=== PATIENT | female | born 1975 | race African-American/Black ===

== ENCOUNTER 2018-12-31 23:14 | Emergency (ER) | payer SELFPAY ==
[2018-12-31 23:39] LABS: Bilirubin Negative (Negative); Blood, Urine Negative (Negative); Clarity CLEAR (Clear); Glucose, Urine (Dipstick) Negative (Negative); Leukocyte Small (Negative); Nitrite Negative (Negative); Protein, Urine (Dipstick) Negative (Neg-Trace); Specific Gravity, Urine 1.027 (1.002-1.036)
[2018-12-31 23:44] LABS: Bacteria/HPF None Seen HPF (None Seen); Hyaline Casts/LPF 0-3 HYALINE CAST LPF (0-3 Hyaline); Pathc Cast-AUWi Flag 0.43 (0-2.49); RBC/HPF 0-3 HPF (0-3); Squamous Epithelial 0-3 HPF (0-3); WBC/HPF 21-50 HPF (0-3)
[2018-12-31 23:47] LABS: #Basophils 0.1 thou/uL (0.0-0.2); #Eosinphils 0.1 thou/uL (0.0-0.7); #Lymphocytes 2.4 thou/uL (1.20-3.40); #Monocytes 0.3 thou/uL (0.11-0.59); #Neutrophils 4.9 thou/uL (1.40-6.50); %Basophils 0.7 % (0.0-1.0); %Eosinophils 1.2 % (0.0-10.0); %Lymphocytes 31.4 % (21.0-51.0); %Monocytes 4.4 % (0.0-10.0); %Neutrophils 62.4 % (42.0-75.0); Hemoglobin 12.7 g/dL (12.0-16.0); Mean Corpuscular HGB CONC 32.4 g/dL (32.0-36.0); Mean Corpuscular Hemoglobin 28.8 pg (27.0-31.0); Mean Corpuscular Volume 88.7 fL (78.0-98.0); Mean Platelet Volume 7.6 fL (7.4-10.4); Platelet Count 311 thou/uL (130-400); White Blood Cell (WBC) Count 7.8 thou/uL (4.8-10.8)
[2019-01-01 00:18] LABS: ALT (SGPT) 14 U/L (8-55); AST (SGOT) 17 U/L (5-34); Albumin 3.2 g/dL (3.5-5.0); Alkaline Phosphatase 47 U/L (40-150); Anion Gap 12 mmol/L (10-20); BUN (Urea Nitrogen) 12 mg/dL (7.0-18.7); Bilirubin, Total 0.2 mg/dL (0.2-1.2); Calc. Creatinine Clearance 0 mL/min (70-130); Calcium 8.6 mg/dL (7.8-10.44); Carbon Dioxide 25 mmol/L (22-29); Chloride 108 mmol/L (98-107); Estimated GFR-MDRD 78; Glucose 93 mg/dL (70-105); Potassium 3.9 mmol/L (3.5-5.1); Protein, Total 6.2 g/dL (6.0-8.3); Sodium 141 mmol/L (136-145)
[2019-01-01] MEDS ORDERED: Ketorolac Tromethamine 30 MG/ML VIAL ONE (00:31)
[2019-01-01 00:35] LABS: Pregnancy Test - Urine (BHCG) Negative (Negative); Pregu Control Background? CLEAR/WHITE (CLR/WHITE); Pregu Control Bar Appear? YES (CONTROL BAR); Specific Gravity 1.027 (1.002-1.036)
== END 2019-01-01 00:58 | disposition home or self-care (01) ==
LOC: ERS 23:14
DX: N30.01 Acute cystitis with hematuria (principal); I10 Essential (primary) hypertension
CPT/HCPCS: 36415; 80053; 81003; 81015; 81025; 85025; 96372; J1885

== ENCOUNTER 2019-01-02 17:07 | Emergency (ER) | payer SELFPAY ==
[~2019-01-02 17:07] MED LIST: Iopamidol 370 76% 100 ML VIAL ONE
[2019-01-02 19:13] LABS: #Basophils 0.1 thou/uL (0.0-0.2); #Eosinphils 0.1 thou/uL (0.0-0.7); #Lymphocytes 2.5 thou/uL (1.20-3.40); #Monocytes 0.4 thou/uL (0.11-0.59); #Neutrophils 5.9 thou/uL (1.40-6.50); %Basophils 0.8 % (0.0-1.0); %Eosinophils 0.8 % (0.0-10.0); %Monocytes 4.6 % (0.0-10.0); %Neutrophils 65.8 % (42.0-75.0); Hemoglobin 12.8 g/dL (12.0-16.0); Mean Corpuscular HGB CONC 32.7 g/dL (32.0-36.0); Mean Corpuscular Hemoglobin 29.1 pg (27.0-31.0); Mean Platelet Volume 7.7 fL (7.4-10.4); Platelet Count 272 thou/uL (130-400); RBC Distribution Width 12.7 % (11.5-14.5); Red Blood Cell (RBC) Count 4.38 mill/uL (4.20-5.40)
[2019-01-02 19:15] LABS: Bilirubin Negative (Negative); Blood, Urine Negative (Negative); Clarity CLEAR (Clear); Glucose, Urine (Dipstick) Negative (Negative); Leukocyte Small (Negative); Nitrite Negative (Negative); Protein, Urine (Dipstick) Negative (Neg-Trace); Specific Gravity, Urine 1.022 (1.002-1.036)
[2019-01-02 19:16] LABS: Pregnancy Test - Urine (BHCG) Negative (Negative); Pregu Control Background? CLEAR/WHITE (CLR/WHITE); Pregu Control Bar Appear? YES (CONTROL BAR); Specific Gravity 1.022 (1.002-1.036)
[2019-01-02 19:17] LABS: Bacteria/HPF None Seen HPF (None Seen); Hyaline Casts/LPF 0-3 HYALINE CAST LPF (0-3 Hyaline); RBC/HPF 0-3 HPF (0-3); Squamous Epithelial 0-3 HPF (0-3)
[2019-01-02 19:36] LABS: AST (SGOT) 22 U/L (5-34); Bilirubin, Total Less than 0.2 mg/dL (0.2-1.2); Calcium 8.1 mg/dL (7.8-10.44); Chloride 109 mmol/L (98-107); Potassium 4.1 mmol/L (3.5-5.1); Sodium 140 mmol/L (136-145)
[2019-01-02] MEDS ORDERED: Ondansetron PF 4 MG/2 ML Vial ONE (19:37)
[2019-01-02] MEDS ORDERED: Morphine 4 MG/ML VIAL ONE (19:37)
--- NOTE | 2019-01-02 19:37 | CT ---
CT ABDOMEN AND PELVIS WITH CONTRAST: 01/02/19 HISTORY: Right lower quadrant tenderness. COMPARISON: CT stone protocol 05/03/14. FINDINGS: The lung bases are clear. No pericardial effusion. Gallbladder, liver, spleen, pancreas are all unrem arkable. No hydroureteronephrosis is appreciated. There is bilateral symmetric renal enhancement. There is dilatation of the left sided gonadal veins. Small layering free fluid in the pelvis. There is suture around a few loops of mid small bowel. The appendix is visualized and is normal. No dilated loops of large or small bowel. No evidence for b owel obstruction. A right adnexal dominant follicle is appreciated. No retroperitoneal adenopathy. Aortoiliac contour is normal. There is no acute osseous abnormality. IMPRESSION: 1. No acute inflammatory process in the abdomen or pelvis. 2. Normal appendix. 3. Free fluid in the pelvis likely physiologic. 4. Chronic osteitis pubis. POS: [facility]
[2019-01-02 19:45] LABS: ALT (SGPT) 20 U/L (8-55); Albumin 3.1 g/dL (3.5-5.0); Alkaline Phosphatase 51 U/L (40-150); Anion Gap 7 mmol/L (10-20); BUN (Urea Nitrogen) 11 mg/dL (7.0-18.7); Calc. Creatinine Clearance 0 mL/min (70-130); Carbon Dioxide 26 mmol/L (22-29); Estimated GFR-MDRD 84; Globulin 2.5 g/dL (2.4-3.5); Glucose 96 mg/dL (70-105); Protein, Total 5.6 g/dL (6.0-8.3)
[2019-01-02] MEDS ORDERED: cefTRIAXone\\ROCEPHIN 250 MG VIAL ONE (20:54)
--- NOTE | 2019-01-02 20:55 | ULT ---
ULTRASOUND PELVIC TRANSVAGINAL 01/02/19 HISTORY: Right lower quadrant pain. COMPARISON: Ultrasound 10/24/14. FINDINGS: Real time dumont scale, color doppler and spectral analysis of the pelvis performed transvaginal lowell culp. The uterus measures 11.9 x 6.6 x 6 cm. Endometrial thickness is 1.6 cm. No fluid within the endom etrial canal. Both ovaries are normal. There is a hemorrhagic cyst right ovary. Trace free fluid. IMPRESSION: Right ovarian hemorrhagic cyst with trace free fluid in the pelvis likely physiologic. Adequate flow to both ovaries. POS: [facility]
[2019-01-02] MEDS ORDERED: Lidocaine 1% PF 5 ML VIAL ONE ×2 (21:04→21:05)
[2019-01-02] MEDS ORDERED: Azithromycin 250 MG TAB ONE (21:04)
== END 2019-01-02 21:30 | disposition home or self-care (01) ==
LOC: ERS 17:07
DX: N73.9 Female pelvic inflammatory disease, unspecified (principal); I10 Essential (primary) hypertension
CPT/HCPCS: 74177; 76856; 80053; 81003; 81015; 81025; 85025; 96361; 96372; 96374; 96375; J0696; J2001; J2270; J2405; Q9967

== ENCOUNTER 2019-05-19 00:41 | Emergency (ER) | payer SELFPAY ==
[2019-05-19 01:14] LABS: #Eosinphils 0.1 thou/uL (0.0-0.7); #Lymphocytes 1.4 thou/uL (1.20-3.40); #Monocytes 0.3 thou/uL (0.11-0.59); #Neutrophils 3.5 thou/uL (1.40-6.50); %Basophils 0.7 % (0.0-1.0); %Eosinophils 1.4 % (0.0-10.0); %Lymphocytes 26.1 % (21.0-51.0); %Monocytes 5.2 % (0.0-10.0); %Neutrophils 66.7 % (42.0-75.0); Hemoglobin 11.6 g/dL (12.0-16.0); Mean Corpuscular HGB CONC 33.1 g/dL (32.0-36.0); Mean Corpuscular Hemoglobin 28.4 pg (27.0-31.0); Mean Corpuscular Volume 85.9 fL (78.0-98.0); Mean Platelet Volume 7.2 fL (7.4-10.4); Platelet Count 324 thou/uL (130-400); Red Blood Cell (RBC) Count 4.07 mill/uL (4.20-5.40); White Blood Cell (WBC) Count 5.2 thou/uL (4.8-10.8)
[2019-05-19] MEDS ORDERED: Sulfameth/Trimethoprim DS 800-160mg TAB ONE (01:23)
[2019-05-19] MEDS ORDERED: HYDROcodone/Acetaminophen 5/325 mg Tablet ONE (01:23)
[2019-05-19 01:35] LABS: ALT (SGPT) 27 U/L (8-55); AST (SGOT) 27 U/L (5-34); Albumin 3.3 g/dL (3.5-5.0); Alkaline Phosphatase 69 U/L (40-150); Anion Gap 11 mmol/L (10-20); BUN (Urea Nitrogen) 8 mg/dL (7.0-18.7); Bilirubin, Total 0.3 mg/dL (0.2-1.2); Calc. Creatinine Clearance 0 mL/min (70-130); Calcium 8.8 mg/dL (7.8-10.44); Carbon Dioxide 25 mmol/L (22-29); Chloride 106 mmol/L (98-107); Estimated GFR-MDRD 90; Globulin 3.3 g/dL (2.4-3.5); Glucose 100 mg/dL (70-105); Potassium 3.5 mmol/L (3.5-5.1); Protein, Total 6.6 g/dL (6.0-8.3); Sodium 138 mmol/L (136-145)
== END 2019-05-19 01:40 | disposition home or self-care (01) ==
LOC: ERS 00:41
DX: L02.211 Cutaneous abscess of abdominal wall (principal); L02.416 Cutaneous abscess of left lower limb; L03.116 Cellulitis of left lower limb; I10 Essential (primary) hypertension
CPT/HCPCS: 36415; 80053; 85025; 99283

== ENCOUNTER 2019-06-08 15:36 | Inpatient (IN) | payer SELFPAY ==
[2019-06-08] MEDS ORDERED: Acetaminophen 500 MG TAB ONE (15:49)
[2019-06-08 16:08] LABS: #Lymphocytes 1.2 thou/uL (1.20-3.40); #Monocytes 0.5 thou/uL (0.11-0.59); #Neutrophils 3.3 thou/uL (1.40-6.50); %Basophils 0.7 % (0.0-1.0); %Eosinophils 0.8 % (0.0-10.0); %Monocytes 9.3 % (0.0-10.0); %Neutrophils 65.3 % (42.0-75.0); Hemoglobin 11.3 g/dL (12.0-16.0); Mean Corpuscular HGB CONC 32.5 g/dL (32.0-36.0); Mean Corpuscular Hemoglobin 27.2 pg (27.0-31.0); Mean Corpuscular Volume 83.7 fL (78.0-98.0); Mean Platelet Volume 7.1 fL (7.4-10.4); Platelet Count 422 thou/uL (130-400); RBC Distribution Width 11.3 % (11.5-14.5); Red Blood Cell (RBC) Count 4.15 mill/uL (4.20-5.40); White Blood Cell (WBC) Count 5.1 thou/uL (4.8-10.8)
[2019-06-08 16:28] LABS: ALT (SGPT) 18 U/L (8-55); AST (SGOT) 20 U/L (5-34); Albumin 3.6 g/dL (3.5-5.0); Alkaline Phosphatase 89 U/L (40-150); Anion Gap 12 mmol/L (10-20); BUN (Urea Nitrogen) 15 mg/dL (7.0-18.7); Bilirubin, Total 0.4 mg/dL (0.2-1.2); Calc. Creatinine Clearance 0 mL/min (70-130); Calcium 9.8 mg/dL (7.8-10.44); Carbon Dioxide 26 mmol/L (22-29); Chloride 101 mmol/L (98-107); Estimated GFR-MDRD 78; Globulin 4.5 g/dL (2.4-3.5); Glucose 99 mg/dL (70-105); Potassium 4.5 mmol/L (3.5-5.1); Protein, Total 8.1 g/dL (6.0-8.3); Sodium 134 mmol/L (136-145)
[2019-06-08 16:57] LABS: Bacteria/HPF None Seen HPF (None Seen); Bilirubin Negative (Negative); Blood, Urine Trace (Negative); Clarity Clear (Clear); Glucose, Urine (Dipstick) Normal (Negative); Leukocyte 75 Leu/uL (Negative); Nitrite Negative (Negative); Protein, Urine (Dipstick) 10 mg/dL (Neg-Trace); Urobilinogen Normal mg/dL (Less than 2)
--- NOTE | 2019-06-08 17:16 | RAD ---
PORTABLE CHEST ONE VIEW: 06/08/2019 3:59 p.m. HISTORY: Cough. COMPARISON: 11/03/2015 FINDINGS: The heart size is normal. The lungs are well expanded without focal areas of consolidation, pneumoth oraces, or pleural effusions. IMPRESSION: No radiographic evidence of acute cardiopulmonary process. POS: OFF
[2019-06-08] MEDS ORDERED: Piperacillin/Tazobactam 4.5 GM VIAL ONE (17:26)
[2019-06-08] MEDS ORDERED: HYDROcodone/Acetaminophen 5/325 mg Tablet PO PRN ×2 (19:32)
[2019-06-08] MEDS ORDERED: Acetaminophen 325 MG TAB PO PRN (19:32)
[2019-06-08] MEDS ORDERED: Ondansetron PF 4 MG/2 ML Vial IVP PRN ×2 (19:32→21:58)
[2019-06-08] MEDS ORDERED: Ondansetron ODT 4 MG TAB SL PRN (19:32)
[2019-06-08 19:42] VITALS: BMI 32.3
[2019-06-08] MEDS ORDERED: Ibuprofen 200 MG TAB PO PRN (21:58)
[2019-06-08] MEDS ORDERED: Ondansetron ODT 4 MG TAB PO PRN (21:58)
[2019-06-08] MEDS ORDERED: hydrALAZINE 20 MG/ML VIAL SLOW IVP PRN (21:58)
[2019-06-08] MEDS: Sodium Chloride 0.9% 1,000 ML IV SCH ×2 (22:08→22:13)
[2019-06-08] MEDS: cefTRIAXone\\ROCEPHIN 2 GM in Sodium Chloride 0.9% 100 ML IVPB SCH (22:14)
[2019-06-08] MEDS ORDERED: Piperacillin/Tazobactam 4.5 GM in Sodium Chloride 0.9% 100 ML IVPB SCH (23:59)
--- NOTE | 2019-06-09 02:29 | HP ---
PRIMARY CARE PROVIDER: [facility] [place], [place]. CHIEF COMPLAINT: Leg pain and fever. HISTORY OF PRESENT ILLNESS: This is a 43-year-old female, who presents to [facility] Emergency Department complaining of left lower extremity pain in addition to fever and general malaise. The patient states she was diagnosed with an abscess of the left thigh approximately 3 weeks prior to this evaluation, undergoing incision and drainage with wound packing over the last 2 weeks. The patient was placed on Bactrim DS and tramadol, completing a course of therapy. The patient also admitted a small skin abscess on the left lower abdomen, which has since improved. The patient complained of fever in the last 24 hours with intermittent chills over the last seven days. The patient states the wound on her left thigh has improved with the packing completely removed and the wound sealed up. The patient denies any new exposure history, family members with similar symptoms or recent travel. The patient denies any increased shortness of breath, cough or congestion. The patient had some diarrhea within the last week, which has since resolved. In the emergency room, the patient underwent general evaluation with vital signs showing a temperature of 101.3 degrees Fahrenheit and tachycardia with heart rates over the 110s. The patient received IV vancomycin and Zosyn due to SIRS criteria being met, as well as intravenous normal saline and acetaminophen. PAST MEDICAL HISTORY: 1. Hypertension, treated. 2. Ectopic . PAST SURGICAL HISTORY: 1. Status post section. 2. Status post hernia repair. 3. Status post bilateral tubal ligation. 4. Status post incision and drainage of left thigh abscess. CURRENT MEDICATIONS: 1. Bactrim DS 800 mg 1 tablet p.o. b.i.d., completed therapy. 2. Tramadol 50 mg p.o. q.4 to 6 hours p.r.n. pain. 3. Antihypertensive, unknown type per patient report. ALLERGIES: NO KNOWN DRUG ALLERGIES. FAMILY HISTORY: No inheritable diseases per patient report. SOCIAL HISTORY: The patient resides in [place], [place]. Works at a local hotel. Occasional alcohol use. No tobacco or illicit drug use. REVIEW OF SYSTEMS: CONSTITUTIONAL: Negative for weight loss or gain, ability to conduct usual activities. SKIN: Negative for rash, itching. EYES: Negative for double vision, pain. ENT/MOUTH: Negative for nose bleeding, neck stiffness, pain, tenderness. CARDIOVASCULAR: Negative for palpitations, dyspnea on exertion, orthopnea. RESPIRATORY: Negative for shortness of breath, wheezing, cough, hemoptysis, fever or night sweats. GASTROINTESTINAL: Negative for poor appetite, abdominal pain, heartburn, nausea, vomiting, constipation, or diarrhea. GENITOURINARY: Negative for urgency, frequency, dysuria, nocturia. MUSCULOSKELETAL: Negative for pain, swelling. NEUROLOGIC/PSYCHIATRIC: Negative for anxiety, depression. ALLERGY/IMMUNOLOGIC: Negative for skin rash, bleeding tendency. Otherwise negative except as stated per HPI. PHYSICAL EXAMINATION: VITAL SIGNS: On admission, blood pressure 111/73, pulse 130, respiratory rate 17, temperature 101.3 degrees Fahrenheit, O2 saturation 99% on room air. GENERAL APPEARANCE: This is a 43-year-old female, alert and oriented x3, pleasant, conversant, in no acute distress. HEENT: Pupils are equal, round, reactive to light and accommodation. Extraocular muscles are intact. No scleral icterus. No conjunctival injection. Nares patent. OP is clear. Teeth in fair repair. NECK: Supple. No cervical adenopathy. No thyromegaly. No carotid bruits. No JVD appreciated. Cervical spine with full active and passive range of motion. No meningeal signs noted. CHEST: Lungs are clear to auscultation bilaterally. CARDIOVASCULAR: S1-S2 without noted murmur, rub, or gallop. ABDOMEN: Rounded, soft, nontender, and nondistended. Bowel sounds are positive in all 4 quadrants. There is no hepatosplenomegaly. No abdominal bruits. No rebound or guarding appreciated. EXTREMITIES: Warm and dry with fair turgor. No clubbing, cyanosis, or asymmetric edema appreciated. Pulses palpable distally at the dorsalis pedis, posterior tibial, and popliteal arteries bilaterally. Capillary refill less than 2 seconds. SKIN: Left thigh with small ulceration in the medial anterior aspect of the mid thigh. Denuded area approximately 1 cm in diameter. No expressible discharge. No induration or fluctuance. NEUROLOGIC: Cranial nerves 2 through 12 are grossly intact. No focal or lateralizing signs appreciated. PERTINENT LAB AND X-RAY FINDINGS: Basic metabolic profile within normal limits. CBC showed a white blood cell count of 5.1, hemoglobin 11, hematocrit 35, platelet count 422 with 65% neutrophils. Urinalysis showed trace blood and positive leukocyte esterase. 4-6 wbc's and rbc's per high-power field. Portable chest x-ray dated 06/08/2019, showed no acute cardiopulmonary process. EKG dated 06/08/2019 by my interpretation shows sinus tachycardia with heart rates in the 110s. Normal R-wave progression noted in the precordial leads. Normal axis. No acute ST-T wave changes appreciated. ASSESSMENT AND PLAN: 1. Systemic inflammatory response syndrome. The patient will be admitted to the medical floor. We will continue empiric antibiotic coverage with vancomycin 1.25 g IV q.12 hours with additional Rocephin 2 g IV q.24 hours. The patient with elevated heart rate and temperature at the time of admission. Left lower extremity skin wound, likely source of infectious process. Blood cultures x2 pending. Continue antibiotic coverage and monitor clinical response. Continue intravenous normal saline 100 mL/h. 2. Left lower extremity abscess, status post incision and drainage. Appears to be healing clinically. We will continue management as outlined in #1. Local wound care. 3. Hypertension. We will confirm home antihypertensive regimen and resume once blood pressure regimen is noted. Hydralazine p.r.n. 4. Normocytic anemia. Chronic appearing. Repeat CBC in the a.m. No specific evidence of acute blood loss. 5. Prophylaxis. SCDs while in bed. Pepcid 20 mg p.o. b.i.d. 6. Code status is full. Surrogate medical decision maker is Tyson Conde. Job ID: [id number]
[2019-06-09] MEDS: Vancomycin HCl 1.25 GM in Sodium Chloride 0.9% 250 ML 250 ML IVPB SCH ×2 (05:07→17:27)
[2019-06-09 05:09] LABS: Eosinophils 2 % (0-10); Hemoglobin 10.2 g/dL (12.0-16.0); Hypochromia SLIGHT = 6-15 cells (100X) (0-5/hpf); Lymphocytes 36 % (21-51); MDiff Complete? YES; Mean Corpuscular HGB CONC 31.8 g/dL (32.0-36.0); Mean Corpuscular Hemoglobin 26.8 pg (27.0-31.0); Mean Corpuscular Volume 84.4 fL (78.0-98.0); Mean Platelet Volume 7.1 fL (7.4-10.4); Monocytes 12 % (0-10); Neutrophil 50 % (42-75); Platelet Count 362 thou/uL (130-400); Platelet Morphology Comment Appears Adequate; RBC Distribution Width 11.3 % (11.5-14.5); White Blood Cell (WBC) Count 3.9 thou/uL (4.8-10.8)
[2019-06-09 05:18] LABS: Anion Gap 11 mmol/L (10-20); BUN (Urea Nitrogen) 15 mg/dL (7.0-18.7); Calc. Creatinine Clearance 139 mL/min (70-130); Carbon Dioxide 23 mmol/L (22-29); Chloride 107 mmol/L (98-107); Estimated GFR-MDRD Greater than 90; Glucose 109 mg/dL (70-105); Potassium 4.1 mmol/L (3.5-5.1); Sodium 137 mmol/L (136-145)
[2019-06-09] MEDS ORDERED: Loratadine 10 MG TAB PO PRN (07:30)
[2019-06-09] MEDS ORDERED: Sodium Chloride 0.65% Nasal 44 ML BOT EA NARE PRN (07:30)
[2019-06-09] MEDS ORDERED: Zolpidem Tartrate 5 MG TAB PO PRN (07:30)
[2019-06-09] MEDS ORDERED: Loperamide HCl 2 MG CAP PO PRN (07:30)
[2019-06-09] MEDS ORDERED: Artificial Tears 18 DROP/0.9 ML EA EYE PRN (07:30)
[2019-06-09] MEDS ORDERED: Calcium Carbonate 500 MG ChewTAB PO PRN (07:30)
[2019-06-09] MEDS ORDERED: Senokot S 8.6-50 MG TAB PO PRN (07:30)
[2019-06-09] MEDS ORDERED: Diabetic Tussin 200 MG/10 ML UDCUP PO PRN (07:30)
[2019-06-09] MEDS ORDERED: Cepastat Lozenges 1 LOZ PO PRN (07:30)
[2019-06-09] MEDS ORDERED: Bisacodyl 10 MG SUPP PR PRN (07:30)
[2019-06-09] MEDS: Famotidine 20 MG TAB PO SCH ×2 (08:31→21:26)
[2019-06-09] MEDS: Sodium Chloride 0.9% 1,000 ML IV SCH ×2 (08:32→18:31)
[2019-06-09] MEDS: Enoxaparin Sodium 40 MG/0.4 ML SYRINGE SC SCH (08:32)
[2019-06-09] MEDS ORDERED: Vancomycin HCl 1.25 GM in Premix Bag 1 BAG IVPB SCH (09:00)
--- NOTE | 2019-06-09 11:00 | PDOC.PN ---
- Subjective Encounter Start Date: 06/09/19 Encounter Start Time: 09:00 -: old records requested/rev Patient seen and examined. No new complaints. No overnight events, left leg pain improving - Objective Resuscitation Status - Order Detail: 06/08/19 21:54 Resuscitation Status Routine Resuscitation Status: FULL: Full Resuscitation MAR Reviewed: Yes Vital Signs & Weight: Vital Signs (12 hours) Temp Pulse Resp BP BP Pulse Ox 06/09/19 08:00 98.4 F 85 18 117/80 100 06/09/19 04:05 99.8 F H 92 20 94/61 98 06/09/19 00:00 98.6 F 92 20 101/62 99 Weight Weight 206 lb 11.2 oz I&O: 06/08/19 06/09/19 06/10/19 06:59 06:59 06:59 Intake Total 1400 Balance 1400 Result Diagrams: 06/09/19 04:24 06/09/19 04:24 Phys Exam - Physical Examination Constitutional: NAD HEENT: PERRLA, moist MMs, sclera anicteric Neck: no JVD, supple Respiratory: no wheezing, no rales, no rhonchi Cardiovascular: RRR, no significant murmur, no rub Gastrointestinal: soft, non-tender, no distention, positive bowel sounds Musculoskeletal: no edema, pulses present left leg cellulitis Neurological: non-focal, normal sensation, moves all 4 limbs Lymphatic: no nodes Psychiatric: normal affect, A&O x 3 Skin: no rash, normal turgor Dx/Plan (1) Cellulitis of left lower extremity Code(s): L03.116 - CELLULITIS OF LEFT LOWER LIMB Status: Acute (2) Sepsis Code(s): A41.9 - SEPSIS, UNSPECIFIED ORGANISM Status: Acute (3) Anemia, normocytic normochromic Code(s): D64.9 - ANEMIA, UNSPECIFIED Status: Chronic (4) Hypertension Code(s): I10 - ESSENTIAL (PRIMARY) HYPERTENSION Status: Chronic (5) Obesity (BMI 30.0-34.9) Code(s): E66.9 - OBESITY, UNSPECIFIED Status: Chronic - Plan cont current plan of care, continue antibiotics * continue rocephin , vancomycin * continue IVF * pain control * ambulate as tolerated * medication reviewed as below * symptomatic treatment. Review of Systems - Review of Systems ENT: negative: Ear Pain, Ear Discharge, Nose Pain, Nose Discharge, Nose Congestion, Mouth Pain, Mouth Swelling, Throat Pain, Throat Swelling, Other Respiratory: negative: Cough, Dry, Shortness of Breath, Hemoptysis, SOB with Excertion, Pleuritic Pain, Sputum, Wheezing Cardiovascular: negative: chest pain, palpitations, orthopnea, paroxysmal nocturnal dyspnea, edema, light headedness, other Gastrointestinal: negative: Nausea, Vomiting, Abdominal Pain, Diarrhea, Constipation, Melena, Hematochezia, Other Genitourinary: negative: Dysuria, Frequency, Incontinence, Hematuria, Retention , Other Musculoskeletal: Leg Pain. negative: Neck Pain, Shoulder Pain, Arm Pain, Back Pain, Hand Pain, Foot Pain, Other Skin: negative: Rash, Lesions, Evan, Bruising, Other - Medications/Allergies Allergies/Adverse Reactions: Allergies Allergy/AdvReac Type Severity Reaction Status Date / Time No Known Allergies Allergy Unverified 06/08/19 19:31 Medications: Current Medications Acetaminophen (Tylenol) 1,000 mg PO Q6H PRN PRN Reason: Mild Pain (1-3) Artificial Tears (Tears Naturale) 2 drop EA EYE PRN PRN PRN Reason: Dry Eyes Bisacodyl (Dulcolax) 10 mg [place] DAILYPRN PRN PRN Reason: Constipation Calcium Carbonate (Tums) 1,000 mg PO Q4H PRN PRN Reason: Heartburn or Indigestion Enoxaparin Sodium (Lovenox) 40 mg SC 0900 [facility] Last Admin: 06/09/19 08:32 Dose: 40 mg Famotidine (Pepcid) 20 mg PO BID [facility] Last Admin: 06/09/19 08:31 Dose: 20 mg Guaifenesin (Robitussin Sf) 200 mg PO Q4H PRN PRN Reason: Cough Hydralazine HCl (Apresoline) 10 mg SLOW IVP Q4H PRN PRN Reason: SBP > 180 and HR < 70 Ceftriaxone Sodium 2 gm/ (Sodium Chloride) 100 mls @ 200 mls/hr IVPB Q24HR [facility] Last Admin: 06/08/19 22:14 Dose: 100 mls Sodium Chloride (Normal Saline 0.9%) 1,000 mls @ 100 mls/hr IV .Q10H [facility] Last Admin: 06/09/19 08:32 Dose: 1,000 mls Vancomycin HCl 1.25 gm/ Sodium (Chloride) 250 mls @ 166.667 mls/hr IVPB 0600, 1800 VINNY Last Admin: 06/09/19 05:07 Dose: 250 mls Ibuprofen (Motrin) 400 mg PO Q4H PRN PRN Reason: Fever > 101 Loperamide HCl (Imodium) 2 mg PO PRN PRN PRN Reason: Diarrhea/Loose Stools Loratadine (Claritin) 10 mg PO DAILYPRN PRN PRN Reason: Sinus Symptoms Ondansetron HCl (Zofran Odt) 4 mg PO Q6H PRN PRN Reason: Nausea/Vomiting Ondansetron HCl (Zofran) 4 mg IVP Q6H PRN PRN Reason: Nausea/Vomiting Senna/Docusate Sodium (Senokot S) 2 tab PO BID PRN PRN Reason: Constipation Sodium Chloride ([place] Nasal [place] 0.65%) 0 ml EA NARE QIDPRN PRN PRN Reason: Nasal Congestion Throat Lozenges (Cepastat Lozenges) 1 rachel PO Q2H PRN PRN Reason: Sore Throat Zolpidem Tartrate (Ambien) 5 mg PO HSPRN PRN PRN Reason: Insomnia
[2019-06-09] MEDS: Acetaminophen 500 MG TAB PO PRN (17:26)
[2019-06-09] MEDS: cefTRIAXone\\ROCEPHIN 2 GM in Sodium Chloride 0.9% 100 ML IVPB SCH (21:26)
[2019-06-10] MEDS: Sodium Chloride 0.9% 1,000 ML IV SCH ×3 (04:40→23:02)
[2019-06-10] MEDS: Vancomycin HCl 1.25 GM in Sodium Chloride 0.9% 250 ML 250 ML IVPB SCH ×2 (05:44→19:34)
[2019-06-10 06:06] LABS: #Eosinphils 0.1 thou/uL (0.0-0.7); #Lymphocytes 1.1 thou/uL (1.20-3.40); #Monocytes 0.4 thou/uL (0.11-0.59); #Neutrophils 1.8 thou/uL (1.40-6.50); %Basophils 0.3 % (0.0-1.0); %Eosinophils 2.3 % (0.0-10.0); %Lymphocytes 32.7 % (21.0-51.0); %Monocytes 11.9 % (0.0-10.0); %Neutrophils 52.8 % (42.0-75.0); Hemoglobin 9.7 g/dL (12.0-16.0); Mean Corpuscular HGB CONC 31.7 g/dL (32.0-36.0); Mean Corpuscular Hemoglobin 26.9 pg (27.0-31.0); Mean Corpuscular Volume 84.7 fL (78.0-98.0); Mean Platelet Volume 7.2 fL (7.4-10.4); Platelet Count 342 thou/uL (130-400); RBC Distribution Width 11.2 % (11.5-14.5); Red Blood Cell (RBC) Count 3.61 mill/uL (4.20-5.40); White Blood Cell (WBC) Count 3.4 thou/uL (4.8-10.8)
[2019-06-10 06:21] LABS: Anion Gap 11 mmol/L (10-20); BUN (Urea Nitrogen) 9 mg/dL (7.0-18.7); CRP (Inflammatory) 5.37 mg/dL (= or < 0.5); Calc. Creatinine Clearance 155 mL/min (70-130); Calcium 8.7 mg/dL (7.8-10.44); Carbon Dioxide 23 mmol/L (22-29); Chloride 107 mmol/L (98-107); Estimated GFR-MDRD Greater than 90; Glucose 97 mg/dL (70-105); Potassium 3.8 mmol/L (3.5-5.1); Sodium 137 mmol/L (136-145)
[2019-06-10] MEDS: Enoxaparin Sodium 40 MG/0.4 ML SYRINGE SC SCH (08:24)
[2019-06-10] MEDS: Famotidine 20 MG TAB PO SCH ×2 (08:24→19:55)
--- NOTE | 2019-06-10 12:07 | PDOC.PN ---
- Subjective Encounter Start Date: 06/10/19 Encounter Start Time: 08:20 Patient seen and examined. No new complaints. No overnight events - Objective Resuscitation Status - Order Detail: 06/08/19 21:54 Resuscitation Status Routine Resuscitation Status: FULL: Full Resuscitation MAR Reviewed: Yes Vital Signs & Weight: Vital Signs (12 hours) Temp Pulse Resp BP BP Pulse Ox 06/10/19 08:00 98.7 F 79 16 104/69 98 06/10/19 04:00 98.6 F 84 20 106/75 100 Weight Admit Weight 206 lb 11.2 oz Weight 206 lb 11.2 oz I&O: 06/09/19 06/10/19 06/11/19 06:59 06:59 06:59 Intake Total 1400 2580 Balance 1400 2580 Result Diagrams: 06/10/19 05:13 06/10/19 05:13 Phys Exam - Physical Examination Constitutional: NAD HEENT: PERRLA, moist MMs, sclera anicteric Neck: no JVD, supple Respiratory: no wheezing, no rales, no rhonchi Cardiovascular: RRR, no significant murmur, no rub Gastrointestinal: soft, non-tender, no distention, positive bowel sounds Musculoskeletal: no edema, pulses present Neurological: non-focal, normal sensation, moves all 4 limbs Lymphatic: no nodes Psychiatric: normal affect, A&O x 3 Skin: no rash, normal turgor Dx/Plan (1) Cellulitis of left lower extremity Code(s): L03.116 - CELLULITIS OF LEFT LOWER LIMB Status: Acute (2) Sepsis Code(s): A41.9 - SEPSIS, UNSPECIFIED ORGANISM Status: Acute (3) Anemia, normocytic normochromic Code(s): D64.9 - ANEMIA, UNSPECIFIED Status: Chronic (4) Hypertension Code(s): I10 - ESSENTIAL (PRIMARY) HYPERTENSION Status: Chronic (5) Obesity (BMI 30.0-34.9) Code(s): E66.9 - OBESITY, UNSPECIFIED Status: Chronic - Plan cont current plan of care * medication reviewed as below * symptomatic treatment * continue iv antibiotics * expecting discharge tomorrow. Review of Systems - Review of Systems ENT: negative: Ear Pain, Ear Discharge, Nose Pain, Nose Discharge, Nose Congestion, Mouth Pain, Mouth Swelling, Throat Pain, Throat Swelling, Other Respiratory: negative: Cough, Dry, Shortness of Breath, Hemoptysis, SOB with Excertion, Pleuritic Pain, Sputum, Wheezing Cardiovascular: negative: chest pain, palpitations, orthopnea, paroxysmal nocturnal dyspnea, edema, light headedness, other Gastrointestinal: negative: Nausea, Vomiting, Abdominal Pain, Diarrhea, Constipation, Melena, Hematochezia, Other Genitourinary: negative: Dysuria, Frequency, Incontinence, Hematuria, Retention , Other Musculoskeletal: negative: Neck Pain, Shoulder Pain, Arm Pain, Back Pain, Hand Pain, Leg Pain, Foot Pain, Other Skin: negative: Rash, Lesions, Evan, Bruising, Other - Medications/Allergies Allergies/Adverse Reactions: Allergies Allergy/AdvReac Type Severity Reaction Status Date / Time No Known Allergies Allergy Unverified 06/08/19 19:31 Medications: Current Medications Acetaminophen (Tylenol) 1,000 mg PO Q6H PRN PRN Reason: Mild Pain (1-3) Last Admin: 06/09/19 17:26 Dose: 1,000 mg Artificial Tears (Tears Naturale) 2 drop EA EYE PRN PRN PRN Reason: Dry Eyes Bisacodyl (Dulcolax) 10 mg [place] DAILYPRN PRN PRN Reason: Constipation Calcium Carbonate (Tums) 1,000 mg PO Q4H PRN PRN Reason: Heartburn or Indigestion Enoxaparin Sodium (Lovenox) 40 mg SC 0900 [facility] Last Admin: 06/10/19 08:24 Dose: 40 mg Famotidine (Pepcid) 20 mg PO BID [facility] Last Admin: 06/10/19 08:24 Dose: 20 mg Guaifenesin (Robitussin Sf) 200 mg PO Q4H PRN PRN Reason: Cough Hydralazine HCl (Apresoline) 10 mg SLOW IVP Q4H PRN PRN Reason: SBP > 180 and HR < 70 Ceftriaxone Sodium 2 gm/ (Sodium Chloride) 100 mls @ 200 mls/hr IVPB Q24HR [facility] Last Admin: 06/09/19 21:26 Dose: 100 mls Sodium Chloride (Normal Saline 0.9%) 1,000 mls @ 100 mls/hr IV .Q10H [facility] Last Admin: 06/10/19 04:40 Dose: 1,000 mls Vancomycin HCl 1.25 gm/ Sodium (Chloride) 250 mls @ 166.667 mls/hr IVPB 0600, 1800 VINNY Last Admin: 06/10/19 05:44 Dose: 250 mls Ibuprofen (Motrin) 400 mg PO Q4H PRN PRN Reason: Fever > 101 Loperamide HCl (Imodium) 2 mg PO PRN PRN PRN Reason: Diarrhea/Loose Stools Loratadine (Claritin) 10 mg PO DAILYPRN PRN PRN Reason: Sinus Symptoms Ondansetron HCl (Zofran Odt) 4 mg PO Q6H PRN PRN Reason: Nausea/Vomiting Ondansetron HCl (Zofran) 4 mg IVP Q6H PRN PRN Reason: Nausea/Vomiting Senna/Docusate Sodium (Senokot S) 2 tab PO BID PRN PRN Reason: Constipation Sodium Chloride ([place] Nasal [place] 0.65%) 0 ml EA NARE QIDPRN PRN PRN Reason: Nasal Congestion Throat Lozenges (Cepastat Lozenges) 1 rachel PO Q2H PRN PRN Reason: Sore Throat Zolpidem Tartrate (Ambien) 5 mg PO HSPRN PRN PRN Reason: Insomnia
[2019-06-10 18:44] LABS: Vancomycin, Trough 7.9 ug/mL
[2019-06-10] MEDS: cefTRIAXone\\ROCEPHIN 2 GM in Sodium Chloride 0.9% 100 ML IVPB SCH (19:55)
[2019-06-10] MEDS: Vancomycin HCl 1.75 GM in Sodium Chloride 0.9% 500 ML IVPB SCH (19:55)
[2019-06-11] MEDS: Enoxaparin Sodium 40 MG/0.4 ML SYRINGE SC SCH (08:03)
[2019-06-11] MEDS: Famotidine 20 MG TAB PO SCH (08:03)
[2019-06-11] MEDS: Sodium Chloride 0.9% 1,000 ML IV SCH (08:04)
[2019-06-11] MEDS: Vancomycin HCl 1.75 GM in Sodium Chloride 0.9% 500 ML IVPB SCH (10:17)
[2019-06-11 11:21] VITALS: BP 108/76; TEMP 99.1
--- NOTE | 2019-06-11 11:55 | DIS ---
DATE OF ADMISSION: 06/08/2019 DATE OF DISCHARGE: 06/11/2019 PRIMARY CARE PHYSICIAN: [facility] Call admission. DISCHARGE DISPOSITION: Home. PRIMARY DISCHARGE DIAGNOSES: 1. Sepsis, resolved. 2. Left lower extremity cellulitis, improving. SECONDARY DISCHARGE DIAGNOSES: 1. Obesity with BMI of 32. 2. Hypertension. 3. Normocytic normochromic anemia. PRIMARY PROCEDURE/OPERATION: None. RADIOLOGICAL INVESTIGATION: Chest x-ray normal. SIGNIFICANT LABORATORY DATA: WBC 3.4, hemoglobin 9.7, platelet 342. Sodium 137, potassium 3.8, CRP 5.37. LFT normal. Urinalysis; leukocyte esterase positive. Blood culture negative. Urine culture negative. DISCHARGE MEDICATION: Keflex 500 mg p.o. t.i.d. for 7 days. CONTRAINDICATION: None. CODE STATUS: Full code. INPATIENT NURSE PRACTITIONER PER DIEM: None. ALLERGIES: NO KNOWN DRUG ALLERGIES. DISCHARGE PLAN: Posthospital, the patient will follow up with primary care physician in 1 or 2 weeks. HOSPITAL COURSE: A 43-year-old female with above-mentioned medical problem, who was admitted by Dr. Garza. Please see his H and P for further details. This patient was having left lower extremity erythema and tenderness. She was diagnosed with left lower extremity cellulitis. She was meeting mild sepsis criteria. She was admitted in the hospital and we treated her with Rocephin and vancomycin. Her culture remained negative and we changed to Keflex on discharge. This patient will continue all her previous medication. I have told her to continue to take Tylenol or ibuprofen as needed basis for pain. This patient is able to ambulate by herself. She is afebrile, tolerating p.o. well and her pain is well controlled. I have seen and examined the patient at bedside today. All review of systems reviewed with her and negative. PHYSICAL EXAMINATION: VITAL SIGNS: Currently, temperature 98.9, pulse 78, respiratory rate 18, saturation 99% on room air, blood pressure 116/77. Weight was 206 pounds. GENERAL: The patient is currently alert and awake. No obvious acute distress. HEENT: Normocephalic and atraumatic. LUNGS: Clear to auscultation without any rhonchi or rales. CARDIAC: S1, S2. Regular without any murmur. ABDOMEN: Soft and benign. EXTREMITIES: No edema. NEUROLOGIC: Nonfocal examination. Overall, the patient is medically stable for discharge today. Job ID: [id number]
[2019-06-11] MEDS: Acetaminophen 500 MG TAB PO PRN (12:41)
--- NOTE | 2019-06-13 13:16 | EKG ---
Test Reason : Blood Pressure : / mmHG Vent. Rate : 112 BPM Atrial Rate : 112 BPM P-R Int : 136 ms QRS Dur : 068 ms QT Int : 310 ms P-R-T Axes : 065 026 025 degrees QTc Int : 423 ms Sinus tachycardia Possible Left atrial enlargement Borderline ECG Confirmed by GRACE CHAVARRIA MD ([id number]), production editor MASSIMO CHAMBERS ([id number] on 06/13/2019 1:16:26 PM Referred By: Confirmed By:GRACE CHAVARRIA MD
== END 2019-06-11 14:44 | disposition home or self-care (01) | DRG 872 ==
LOC: ERS 15:36 → T4-B 19:14
PROVIDERS: ADMIT Internal Medicine; ATTEND Internal Medicine
DX: A41.9 Sepsis, unspecified organism (principal); L03.116 Cellulitis of left lower limb; L02.416 Cutaneous abscess of left lower limb; I10 Essential (primary) hypertension; E66.9 Obesity, unspecified; D64.9 Anemia, unspecified; Z68.32 Body mass index [BMI] 32.0-32.9, adult; Z98.51 Tubal ligation status; Z79.899 Other long term (current) drug therapy
CPT/HCPCS: 36415; 71045; 80048; 80053; 80202; 81003; 81015; 83605; 85007; 85025; 85027; 86140; 87040; 87086; 93005; 94760; 96361; 96365; 96367; J0696; J1650; J2543; J3370; J3490; J7050

== ENCOUNTER 2019-11-02 22:43 | Emergency (ER) | payer SELFPAY | END 2019-11-02 23:14 | disposition home or self-care (01) | LOC: ERS 22:43 | DX: J11.1 Influenza due to unidentified influenza virus with other respiratory manifestations (principal); I10 Essential (primary) hypertension | CPT/HCPCS: 99283 ==

== ENCOUNTER 2021-08-23 15:15 | Emergency (ER) | payer SELFPAY ==
[2021-08-23] MEDS ORDERED: Acetaminophen 500 MG TAB ONE (16:30)
[2021-08-23] MEDS ORDERED: diphenhydrAMINE 50 MG/ML VIAL ONE (16:30)
[2021-08-23] MEDS ORDERED: Metoclopramide HCl 10 MG/2 ML VIAL ONE (16:30)
[2021-08-23 16:49] LABS: #Eosinphils 0.2 thou/uL (0.0-0.7); #Lymphocytes 1.7 thou/uL (1.20-3.40); #Monocytes 0.4 thou/uL (0.11-0.59); #Neutrophils 2.6 thou/uL (1.40-6.50); %Basophils 0.5 % (0.0-1.0); %Eosinophils 4.8 % (0.0-10.0); %Lymphocytes 33.7 % (21.0-51.0); %Monocytes 7.4 % (0.0-10.0); %Neutrophils 53.6 % (42.0-75.0); Hemoglobin 11.5 g/dL (12.0-16.0); Mean Corpuscular HGB CONC 33.1 g/dL (32.0-36.0); Mean Corpuscular Hemoglobin 29.3 pg (27.0-31.0); Mean Corpuscular Volume 88.4 fL (78.0-98.0); Mean Platelet Volume 7.3 fL (7.4-10.4); Platelet Count 332 thou/uL (130-400); RBC Distribution Width 12.5 % (11.5-14.5); Red Blood Cell (RBC) Count 3.95 mill/uL (4.20-5.40); White Blood Cell (WBC) Count 4.9 thou/uL (4.8-10.8)
[2021-08-23 17:10] LABS: ALT (SGPT) 19 U/L (8-55); AST (SGOT) 21 U/L (5-34); Albumin 3.2 g/dL (3.5-5.0); Alkaline Phosphatase 62 U/L (40-110); Anion Gap 9 mmol/L (10-20); BUN (Urea Nitrogen) 7 mg/dL (7.0-18.7); Bilirubin, Total 0.3 mg/dL (0.2-1.2); Calc. Creatinine Clearance 0 mL/min (70-130); Calcium 8.7 mg/dL (7.8-10.44); Carbon Dioxide 28 mmol/L (22-29); Chloride 107 mmol/L (98-107); Globulin 3.4 g/dL (2.4-3.5); Glucose 82 mg/dL (70-105); Protein, Total 6.6 g/dL (6.0-8.3); Sodium 140 mmol/L (136-145)
== END 2021-08-23 18:44 | disposition home or self-care (01) ==
LOC: ERS 15:15
DX: E86.0 Dehydration (principal); R51.9 Headache, unspecified; I10 Essential (primary) hypertension
CPT/HCPCS: 80053; 85025; 96374; 96375; J1200; J2765

== ENCOUNTER 2021-10-08 13:11 | Emergency (ER) | payer SELFPAY ==
[2021-10-08] MEDS ORDERED: Ibuprofen 800 MG TAB ONE ×2 (14:04)
[2021-10-08] MEDS ORDERED: Acetaminophen 500 MG TAB ONE (14:04)
[2021-10-08 14:22] LABS: SARS-CoV-2 NAA Rapid Test Not Detected (NotDetected)
[2021-10-08 14:32] LABS: Bacteria/HPF 2+ HPF (None Seen); Bilirubin Negative (Negative); Blood, Urine 3+ (Negative); Clarity Turbid (Clear); Glucose, Urine (Dipstick) Normal (Negative); Ketone, Urine Negative (Negative); Leukocyte 500 Leu/uL (Negative); Nitrite Negative (Negative); Protein, Urine (Dipstick) 30 mg/dL (Neg-Trace); Specific Gravity, Urine 1.031 (1.002-1.036); Urobilinogen Normal mg/dL (Less than 2); WBC/HPF 21-50 HPF (0-3); pH, Urine 5.5 (5.0-9.0)
[2021-10-08 14:35] LABS: Pregnancy Test - Urine (BHCG) Negative (Negative); Pregu Control Background? CLEAR/WHITE (CLR/WHITE); Pregu Control Bar Appear? YES (CONTROL BAR); Specific Gravity 1.031 (1.002-1.036)
[2021-10-08] MEDS ORDERED: Cefdinir 300 MG CAP PO SCH (15:45)
== END 2021-10-08 15:45 | disposition home or self-care (01) ==
LOC: ERS 13:11
DX: N39.0 Urinary tract infection, site not specified (principal); I10 Essential (primary) hypertension; G43.909 Migraine, unspecified, not intractable, without status migrainosus; Z20.822 Contact with and (suspected) exposure to COVID-19
CPT/HCPCS: 0240U; 81003; 81015; 81025; 87086; 99284

== ENCOUNTER 2022-01-16 14:43 | Emergency (ER) | payer MEDICAID ==
[2022-01-16 15:53] LABS: Hemoglobin 12.6 g/dL (12.0-16.0); Mean Corpuscular HGB CONC 32.9 g/dL (32.0-36.0); Mean Corpuscular Hemoglobin 27.5 pg (27.0-31.0); Mean Corpuscular Volume 83.6 fL (78.0-98.0); Mean Platelet Volume 7.2 fL (7.4-10.4); Platelet Count 353 thou/uL (130-400); RBC Distribution Width 15.1 % (11.5-14.5); Red Blood Cell (RBC) Count 4.57 mill/uL (4.20-5.40); White Blood Cell (WBC) Count 4.5 thou/uL (4.8-10.8)
[2022-01-16 16:06] LABS: Anisocytosis SLIGHT = 6-15 cells (100X) (0-5/hpf); Eosinophils 7 % (0-10); Lymphocytes 31 % (21-51); MDiff Complete? YES; Monocytes 4 % (0-10); Neutrophil 57 % (42-75); Platelet Morphology Comment Appears Adequate; Reactive Lymphocytes 1 % (0-10)
[2022-01-16 16:17] LABS: ALT (SGPT) 23 U/L (8-55); AST (SGOT) 23 U/L (5-34); Albumin 3.6 g/dL (3.5-5.0); Alkaline Phosphatase 102 U/L (40-110); Anion Gap 11 mmol/L (10-20); BUN (Urea Nitrogen) 17 mg/dL (7.0-18.7); Bilirubin, Total 0.3 mg/dL (0.2-1.2); Calc. Creatinine Clearance 0 mL/min (70-130); Calcium 9.6 mg/dL (7.8-10.44); Carbon Dioxide 24 mmol/L (22-29); Chloride 106 mmol/L (98-107); Globulin 4.2 g/dL (2.4-3.5); Glucose 103 mg/dL (70-105); Protein, Total 7.8 g/dL (6.0-8.3); Sodium 137 mmol/L (136-145)
== END 2022-01-16 17:20 | disposition home or self-care (01) ==
LOC: ERS 14:43
DX: R07.89 Other chest pain (principal)
CPT/HCPCS: 36415; 71045; 80053; 84484; 85025; 93005

== ENCOUNTER 2022-12-03 11:55 | Emergency (ER) | payer MEDICAID, SELFPAY | END 2022-12-03 13:47 | disposition home or self-care (01) | LOC: ERS 11:55 | DX: G56.31 Lesion of radial nerve, right upper limb (principal); I10 Essential (primary) hypertension; E78.5 Hyperlipidemia, unspecified; W26.8XXA Contact with other sharp object(s), not elsewhere classified, initial encounter | CPT/HCPCS: 99283 ==

== ENCOUNTER 2023-06-24 23:23 | Emergency (ER) | payer SELFPAY ==
[2023-06-24] MEDS ORDERED: Morphine 4 MG/ML VIAL ONE (23:40)
[2023-06-24] MEDS ORDERED: Nitroglycerin 2% Ointment 1 INCH/1 GM Packet ONE (23:41)
[2023-06-24] MEDS ORDERED: Aspirin 325 MG TAB ONE (23:41)
[2023-06-24] MEDS ORDERED: Furosemide 40 MG/4 ML VIAL ONE (23:41)
[2023-06-25 00:12] LABS: #Eosinphils 0.1 thou/uL (0.0-0.7); #Monocytes 0.4 thou/uL (0.11-0.59); #Neutrophils 3.1 thou/uL (1.40-6.50); %Basophils 0.4 % (0.0-1.0); %Eosinophils 2.4 % (0.0-10.0); %Lymphocytes 32.9 % (21.0-51.0); %Monocytes 6.7 % (0.0-10.0); %Neutrophils 57.2 % (42.0-75.0); Hemoglobin 11.3 g/dL (12.0-16.0); Mean Corpuscular Hemoglobin 28.4 pg (27.0-31.0); Mean Corpuscular Volume 88.7 fl (78.0-98.0); Mean Platelet Volume 10.2 fL (7.4-10.4); Platelet Count 259 10x3/uL (130-400); RBC Distribution Width 13.8 % (11.5-14.5); Red Blood Cell (RBC) Count 3.98 mill/uL (4.20-5.40); White Blood Cell (WBC) Count 5.4 10x3/uL (4.8-10.8)
[2023-06-25 00:34] LABS: ALT (SGPT) 18 U/L (8-55); AST (SGOT) 20 U/L (5-34); Albumin 3.3 g/dL (3.5-5.0); Alkaline Phosphatase 57 U/L (40-110); Anion Gap 14 mmol/L (10-20); BUN (Urea Nitrogen) 15 mg/dL (7.0-18.7); Bilirubin, Total 0.2 mg/dL (0.2-1.2); Calc. Creatinine Clearance 0 mL/min (70-130); Calcium 8.5 mg/dL (7.8-10.44); Carbon Dioxide 20 mmol/L (22-29); Chloride 111 mmol/L (98-107); Estimated GFR 60; Globulin 2.9 g/dL (2.4-3.5); Glucose 101 mg/dL (70-105); Potassium 4.7 mmol/L (3.5-5.1); Protein, Total 6.2 g/dL (6.0-8.3); Sodium 140 mmol/L (136-145)
[2023-06-25 00:47] LABS: BHCG - Serum Negative (NEGATIVE); Pregs Control Background? CLEAR/WHITE (CLR/WHITE); Pregs Control Bar Appear? YES (CONTROL BAR)
[2023-06-25 02:38] LABS: Troponin I Less than 0.010 ng/mL (< 0.028)
== END 2023-06-25 03:20 | disposition home or self-care (01) ==
LOC: ERS 23:23
DX: N17.9 Acute kidney failure, unspecified (principal); D64.9 Anemia, unspecified; I10 Essential (primary) hypertension
CPT/HCPCS: 36415; 71045; 80053; 83880; 84484; 84703; 85025; 85379; 93005; J1650; J1940; J2270

== ENCOUNTER 2024-09-03 10:07 | Emergency (ER) | payer OTHER ==
[2024-09-03] MEDS ORDERED: Ketorolac Tromethamine 30 MG (1 mL) VIAL ONE (10:27)
[2024-09-03] MEDS ORDERED: diphenhydrAMINE 50 MG/ML VIAL ONE (10:27)
[2024-09-03] MEDS ORDERED: Prochlorperazine 10 MG/2 ML VIAL ONE (10:28)
== END 2024-09-03 11:43 | disposition home or self-care (01) ==
LOC: ERS 10:07
DX: G44.209 Tension-type headache, unspecified, not intractable (principal); I10 Essential (primary) hypertension
CPT/HCPCS: 96361; 96374; 96375; J0780; J1200; J1885